=== PATIENT | male | born 1960 | race Caucasian/White ===

== ENCOUNTER 2018-07-15 17:24 | Outpatient (CLI) | payer OTHER ==
[2018-07-15 17:49] LABS: eGFR (Non-African) > 60
== END 2018-07-15 17:25 ==
LOC: LABRHC 17:24
PROVIDERS: ATTEND Family Medicine
DX: R74.8 Abnormal levels of other serum enzymes (principal); E78.5 Hyperlipidemia, unspecified
CPT/HCPCS: 36415; 80053; 80061

== ENCOUNTER 2019-02-16 09:36 | Day surgery (SDC) | payer OTHER ==
[~2019-02-16 09:36] MED LIST: LACTATED RINGERS 1,000 ML IV.SOLN IV ONE; LIDOCAINE HCL 2% PF 100MG/5ML VIAL IJ ONE; PROPOFOL 200 MG/20 ML VIAL IV ONE
--- NOTE | 2019-02-18 13:20 | GI Report ---
DATE OF PROCEDURE: 02/16/2019 REFERRING PHYSICIAN: Dr. Han. PROCEDURE PERFORMED: Colonoscopy with polypectomy. SURGEON: Ellis Langston M.D., F.A.C.P. INDICATION FOR PROCEDURE: The patient is a 59-year-old man referred for screening colonoscopy. This is his first colonoscopy. He occasionally has some blood in the stool that he attributes to a hemorrhoid when he gets constipated. He is not aware of a family history of colorectal cancer. The patient has been a pack a day cigarette smoker for over 35 years. He does have a cough. He denies any abdominal surgeries. PROCEDURE MEDICATION: Propofol, as per Anesthesia. DESCRIPTION OF PROCEDURE: The Olympus video colonoscope was advanced through the rectum. The prep was poor. There was some stool coating the wall all the way to the cecum. The appendiceal orifice, ileocecal valve looked normal. The cecum, ascending colon no obvious intraluminal lesions noted but small polyps could be missed when the prep is poor. Transverse colon: Again, no obvious intraluminal lesions noted. Descending colon, sigmoid: Again, some redundancy. No obvious intraluminal lesions noted. In the rectum at about 8 cm the patient has a 0.5 cm polyp, removed with cold snare and submitted to pathology. Retroflexion showed hemorrhoids. The patient tolerated the procedure well. FINDINGS: 1. Polyp removed from the rectum. 2. Prep was poor. 3. Chronic obstructive pulmonary disease. RECOMMENDATIONS: 1. Pending the pathology of the polyp he needs his colon looked at again in 5 years. The next time he needs to be on a 2 day prep. 2. Recommended strongly discontinuing tobacco usage. 3. Follow-up with Dr. Han. ELLIS LANGSTON M.D., F.A.C.P. [employer] Job#: [id number] Cc: Dr. Han [facility]
== END 2019-02-16 11:42 | disposition home or self-care (01) ==
LOC: OPSURG 09:36
PROVIDERS: ATTEND Internal Medicine Gastroenterology
DX: K92.1 Melena (principal); D12.8 Benign neoplasm of rectum; K64.9 Unspecified hemorrhoids; J44.9 Chronic obstructive pulmonary disease, unspecified; F17.210 Nicotine dependence, cigarettes, uncomplicated
CPT/HCPCS: 45385; J2001; J2704; J7120